=== PATIENT | female | born 2000 | race African-American/Black ===

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

== ENCOUNTER 2024-03-07 10:17 | Emergency (ER) | payer BC, SELFPAY ==
--- NOTE | 2024-03-07 11:03 | RAD REPORT ---
EXAMINATION: ONE VIEW CHEST XR CLINICAL INDICATION: FEVER TECHNIQUE: Frontal chest projection is submitted. Examination is limited by patient positioning and t echnique. COMPARISON: No prior exam. FINDINGS: The lungs are well inflated and clear. The heart is normal in size. No displaced fractures identified . IMPRESSION: No acute intrathoracic abnormalities.
[2024-03-07] MEDS ORDERED: ACETAMINOPHEN 500 MG TAB ONE (11:09)
[2024-03-07 11:10] LABS: SARS-CoV-2 Antigen CONTROL BLUE LINE VIS/BG OK; SARS-CoV-2 Antigen Rapid Res Negative (Negative)
--- NOTE | 2024-03-07 11:59 | EDPHYS ---
Physician Documentation [facility] Name: Sapna Dior Age: 23 yrs Sex: Female : 2000 Arrival Date: 03/07/2024 Time: 10:17 Bed 13 Private MD: ED Physician Irena Tapia HPI: 03/07 11:02 This 23 yrs old Black Female presents to ER via Ambulatory with complaints of Fever. sp3 11:02 23-year-old female with no past medical history presents with fever, mild cough, sp3 rhinorrhea and bodyaches upon awakening today. 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 Tmax 101 this morning at home. She denies any headache, neck pain, chest pain, shortness of breath, abdominal pain, vomit, diarrhea, rash, syncope, travel history, or any other signs or symptoms on ROS at this time.. Historical: - Allergies: 10:31 PENICILLINS; ll1 - Home Meds: 10:31 None [Active]; ll1 - PMHx: 10:31 None; ll1 - PSHx: 10:31 None; ll1 - Immunization history:: Adult Immunizations up to date. - Social history:: Smoking status: Patient denies any tobacco usage or history of. ROS: 11:03 Constitutional: Negative for fever, chills, and weight loss, Eyes: Negative for injury, sp3 pain, redness, and discharge, Neck: Negative for injury, pain, and swelling, Cardiovascular: Negative for chest pain, palpitations, and edema, Abdomen/GI: Negative for abdominal pain, nausea, vomiting, diarrhea, and constipation, Back: Negative for injury and pain, MS/Extremity: Negative for injury and deformity, Skin: Negative for injury, rash, and discoloration, Neuro: Negative for headache, weakness, numbness, tingling, and seizure, Psych: Negative for depression, anxiety, suicide ideation, homicidal ideation, and hallucinations, Allergy/Immunology: Negative for hives, rash, and allergies, Endocrine: Negative for neck swelling, polydipsia, polyuria, polyphagia, and marked weight changes, Hematologic/Lymphatic: Negative for swollen nodes, abnormal bleeding, and unusual bruising, 11:03 All other systems are negative, Exam: 11:03 Constitutional: This is a well developed, well nourished patient who is awake, alert, sp3 and in no acute distress. Head/Face: Normocephalic, atraumatic. Eyes: Pupils equal round and reactive to light, extra-ocular motions intact. Lids and lashes normal. Conjunctiva and sclera are non-icteric and not injected. Cornea within normal limits. Periorbital areas with no swelling, redness, or edema. ENT: Nares patent. No nasal discharge, no septal abnormalities noted. External auditory canals are clear. Oropharynx with no redness, swelling, or masses, exudates, or evidence of obstruction, uvula midline. Mucous membranes moist. Neck: Trachea midline, no thyromegaly or masses palpated, and no cervical lymphadenopathy. Supple, full range of motion without nuchal rigidity, or vertebral point tenderness. No Meningismus. Chest/axilla: Normal chest wall appearance and motion. Nontender with no deformity. No lesions are appreciated. Cardiovascular: Regular rate and rhythm with a normal S1 and S2. No gallops, murmurs, or rubs. Normal PMI, no JVD. No pulse deficits. Abdomen/GI: Soft, non-tender, with normal bowel sounds. No distension or tympany. No guarding or rebound. No evidence of tenderness throughout. Back: No spinal tenderness. No costovertebral tenderness. Full range of motion. Skin: Warm, dry with normal turgor. Normal color with no rashes, no lesions, and no evidence of cellulitis. MS/ Extremity: Pulses equal, no cyanosis. Neurovascular intact. Full, normal range of motion. Neuro: Awake and alert, GCS 15, oriented to person, place, time, and situation. Cranial nerves II-XII grossly intact. Motor strength 5/5 in all extremities. Sensory grossly intact. Cerebellar exam normal. Normal gait. Psych: Awake, alert, with orientation to person, place and time. Behavior, mood, and affect are within normal limits. 11:03 Respiratory: Mild cough noted. Temp 101.2 with heart rate 108 consistent with fever. Clinically not dehydrated., Vital Signs: 10:32 BP 133 / 77; Pulse 108; Resp 17; Temp 101.2(O); Pulse Ox 99% on R/A; Weight 86.18 kg; ll1 Height 5 ft. 4 in. ; Pain 4/10; 12:10 BP 110 / 83; Pulse 96; Resp 18 S; Temp 98.9(O); Pulse Ox 98% on R/A; aa5 10:32 Body Mass Index 32.61 (86.18 kg, 162.56 cm) ll1 10:32 Pain Scale: Adult ll1 MDM: 10:29 Medical Screening Exam initiated sp3 11:03 Data reviewed: vital signs, nurses notes, lab test result(s), radiologic studies. ED sp3 course: 23-year-old female with upper respiratory symptoms and fever. Differential diagnosis includes upper respiratory infection, viral illness, COVID-19, influenza, strep pharyngitis, pneumonia, bronchitis, among others. I am not highly suspicious of sepsis, shock or any other critical pathology. Workup will include chest x-ray, swabs and general supportive care including Tylenol p.o. Disposition pending workup and patient course with probable discharge home.. 11:58 ED course: Patient positive for influenza A. Will safely discharge home on Tamiflu.. sp3 03/07 10:33 Order name: SARS RAPID; Complete Time: 11:58 sp3 03/07 10:33 Order name: Flu; Complete Time: 11:58 sp3 03/07 10:33 Order name: Strep sp3 03/07 11:14 Order name: Throat Culture EDMS 03/07 10:33 Order name: CXR XRAY; Complete Time: 11:04 sp3 Administered Medications: 11:10 Drug: Acetaminophen PO 1000 mg PO once Route: PO; aa5 12:10 Follow up: Response: No adverse reaction; Temperature is decreased aa5 Disposition Summary: 03/07/24 11:59 Discharge Ordered Notes: Location: Home sp3 Condition: Stable sp3 Diagnosis - Influenza A sp3 Followup: sp3 - With: Private Physician - When: Upon discharge from the Emergency Department - Reason: Continuance of care Discharge Instructions: - Discharge Summary Sheet ll1 - Influenza, Adult sp3 Forms: - Work release form ll1 - Medication Reconciliation Form sp3 - Antibiotic Education sp3 - Prescription Opioid Use sp3 - Patient Portal Instructions sp3 - Leadership Thank You Letter sp3 Prescriptions: - Tamiflu 75 mg Oral capsule - take 1 tablet ORAL route every 12 hours for 5 days; 10 tablet; Refills: 0, sp3 Product Selection Permitted Signatures: Dispatcher [employer] Violetta Warner RN RN aa5 Ashlee Phoenix, RN RN ll1 Irena Tapia, MD DRISCOLL sp3
--- NOTE | 2024-03-07 11:59 | ER ---
Nurse's Notes [facility] Name: Sapna Dior Age: 23 yrs Sex: Female : 2000 Arrival Date: 03/07/2024 Time: 10:17 Bed 13 Private MD: Diagnosis: Influenza A Presentation: 03/07 10:32 Coronavirus screen: Client denies travel out of the [place] in the last 14 days. Ebola ll1 Screen: Patient denies travel to an Ebola-affected area in the 21 days before illness onset. Initial Sepsis Screen: Does the patient meet any 2 criteria? No. Patient's initial sepsis screen is negative. Does the patient have a suspected source of infection? No. Patient's initial sepsis screen is negative. Risk Assessment: Do you want to hurt yourself or someone else? Patient reports no desire to harm self or others. Onset of symptoms was March 07, 2024. 10:32 Method Of Arrival: Ambulatory ll1 10:32 Acuity: FRANCISCO JAVIER 4 ll1 10:35 Chief complaint: Patient states: [place], fever, runny nose started today. ll1 Triage Assessment: 10:35 General: Appears uncomfortable, Behavior is calm, cooperative, appropriate for age. ll1 General: Reports fever for feeling ill for fatigue for. Pain: Complains of pain in head Pain currently is 4 out of 10 on a pain scale. Quality of pain is described as aching. EENT: Reports nasal discharge that is watery. Neuro: Reports headache. Historical: - Allergies: 10:31 PENICILLINS; ll1 - Home Meds: 10:31 None [Active]; ll1 - PMHx: 10:31 None; ll1 - PSHx: 10:31 None; ll1 - Immunization history:: Adult Immunizations up to date. - Social history:: Smoking status: Patient denies any tobacco usage or history of. Screenin:10 [facility] ED Fall Risk Assessment (Adult) History of falling in the last 3 months, aa5 including since admission No falls in past 3 months (0 pts) Confusion or Disorientation No (0 pts) Intoxicated or Sedated No (0 pts) Impaired Gait No (0 pts) Mobility Assist Device Used No (0 pt) Altered Elimination No (0 pt) Score/Fall Risk Level 0 - 2 = Low Risk Oriented to surroundings, Maintained a safe environment, Educated pt \T\ family on fall prevention, incl call for assistance when getting out of bed. Abuse screen: Denies threats or abuse. Nutritional screening: No deficits noted. Tuberculosis screening: No symptoms or risk factors identified. Assessment: 11:10 General: Appears uncomfortable, Behavior is calm, cooperative. Pain: Complains of pain aa5 in head. Neuro: Level of Consciousness is awake, alert, obeys commands, Oriented to person, place, time, situation. Cardiovascular: Heart tones S1 S2 present Rhythm is regular. Respiratory: Airway is patent Respiratory effort is even, unlabored, Respiratory pattern is regular, symmetrical. GI: Abdomen is round non-distended. : No signs and/or symptoms were reported regarding the genitourinary system. EENT: Reports nasal congestion nasal discharge that is watery. Derm: Skin is dry, Skin is normal, Skin temperature is hot. Musculoskeletal: Range of motion: intact in all extremities. 12:20 Neuro: Level of Consciousness is awake, alert, obeys commands, Oriented to person, aa5 place, time, situation. Respiratory: Airway is patent Respiratory effort is even, unlabored, Respiratory pattern is regular, symmetrical. Derm: Skin is dry, Skin is normal, Skin temperature is warm. Vital Signs: 10:32 BP 133 / 77; Pulse 108; Resp 17; Temp 101.2(O); Pulse Ox 99% on R/A; Weight 86.18 kg; ll1 Height 5 ft. 4 in. ; Pain 4/10; 12:10 BP 110 / 83; Pulse 96; Resp 18 S; Temp 98.9(O); Pulse Ox 98% on R/A; aa5 10:32 Body Mass Index 32.61 (86.18 kg, 162.56 cm) ll1 10:32 Pain Scale: Adult ll1 ED Course: 10:20 Patient arrived in ED. ra3 10:29 Irena Tapia MD is Attending Physician. sp3 10:31 Arm band placed on. ll1 10:33 Triage completed. ll1 10:43 SARS RAPID Sent. ll1 10:43 Flu Sent. ll1 10:43 Strep Sent. ll1 10:59 Violetta Perry, RN is Primary Nurse. aa5 10:59 CXR XRAY In Process Unspecified. EDMS 11:10 Patient has correct armband on for positive identification. Bed in low position. Call aa5 light in reach. Side rails up X 1. Adult w/ patient. 12:20 No provider procedures requiring assistance completed. Patient did not have IV access aa5 during this emergency room visit. Administered Medications: 11:10 Drug: Acetaminophen PO 1000 mg PO once Route: PO; aa5 12:10 Follow up: Response: No adverse reaction; Temperature is decreased aa5 Medication: 12:10 VIS not applicable for this client. aa5 Outcome: 11:59 Discharge ordered by MD. [email or web address] 12:20 Discharged to home ambulatory, with family, aa5 12:20 Condition: stable 12:20 Discharge instructions given to patient, Instructed on discharge instructions, follow up and referral plans. medication usage, Demonstrated understanding of instructions, follow-up care, medications, Prescriptions given X 1, 12:29 Patient left the ED. aa5 Signatures: Dispatcher [employer] EDMS Violetta Perry RN RN aa5 Ashlee Phoenix RN RN ll1 Irena Tapia MD MD sp3 Za Drake ra3 Corrections: (The following items were deleted from the chart) 10:33 10:32 BP 133 / 77; Pulse 108bpm; Resp 17bpm; Pulse Ox 99% RA; 86.18 kg; Height 5 ft. 4 ll1 in.; BMI: 32.6; Pain 4/10, Adult; ll1
[2024-03-07 12:33] VITALS: BP 133/77; TEMP 101.2; O2SAT 99
== END 2024-03-07 12:29 | disposition home or self-care (01) ==
LOC: ER 10:17
DX: J10.1 Influenza due to other identified influenza virus with other respiratory manifestations (principal); Z11.52 Encounter for screening for COVID-19
CPT/HCPCS: 36415; 71045; 87070; 87081; 87804; 87811; 99284